=== PATIENT | male | born 1955 | race Caucasian/White ===

== ENCOUNTER 2019-09-19 12:53 | Emergency (ER) | payer MEDICARE, OTHER ==
[~2019-09-19] VITALS: Ht 180.3 cm; Wt 181.4 kg
[2019-09-19 13:24] VITALS: BP_SYST 148; BP_SYST 159; BP_DIAS 54; BP_DIAS 92
[2019-09-19 14:02] LABS: BASOPHIL % 0.4 % (0.0-0.2); EOSINOPHIL # 0.1 10^3/uL (0.0-0.2); EOSINOPHIL % 1.9 % (0.0-5.0); LYMPHOCYTES # 1.4 10^3/uL (1.0-4.8); LYMPHOCYTES % 26.8 % (24.0-44.0); MEAN CORP HGB 29.7 pg (26-34); MONOCYTES # 0.5 10^3/uL (0.3-0.8); MONOCYTES % 9.6 % (5.0-12.0); NEUTROPHIL # 3.3 10^3/uL (1.8-7.7); NEUTROPHILS % 61.1 % (41.0-85.0); RED CELL DISTRIBUTION WIDTH 15.3 % (11.5-14.5)
--- NOTE | 2019-09-19 14:04 | ER.PDOC ---
General Chief Complaint: Requesting Medical Care Stated Complaint: BLEEDING Time seen by MD: 13:45 Source: patient, family Exam Limitations: no limitations History of Present Illness Initial Comments Pt had just went to the bathroom, and he noticed bleeding coming from his scrotum posteriorly. sat down on it, and it stopped bleeding after about 30 minutes. No longer bleeding. Had a similar episode that occurred on . NO light-headedness, no syncope.. Timing/Duration: this morning Severity/Quality: mild, moderate Location: scrotal Sexual History: Non-contributory Prior symptoms/Treatment: Similar symptoms previous Allergies: Coded Allergies: pramipexole (Verified Allergy, Intermediate, LLE EDEMA, 09/19/19) sulfamethoxazole (Verified Allergy, Intermediate, RASH / HIVES, 09/19/19) trimethoprim (Verified Allergy, Intermediate, RASH / HIVES, 09/19/19) Past Medical History Medical History: coronary artery disease, congestive heart failure, diabetes, high cholesterol, hypertension Social History Alcohol Use: rarely Drug Use: none Review of Systems Constitutional: no symptoms reported Respiratory: no symptoms reported Cardiovascular: no symptoms reported Genitourinary: see HPI; denies burning, denies discharge, denies dysuria, denies frequency, denies hematuria Musculoskeletal: no symptoms reported Skin: no symptoms reported All Other Systems: Reviewed and Negative Physical Exam General Appearance: No Apparent Distress, WD/WN Abdomen: Non Tender Male Genitals: Other (multiple small varicosities, no active bleeding. Bleeding site not definitively identifiable.) Extremities: Normal Range of Motion Neurologic/Psychiatric: No Motor/Sensory Deficits, Alert, Oriented x 3 Skin: Normal Color, Warm/Dry Results/Orders Results/Orders Orders - ROSAMARIA DIEHL DO Cbc With Auto Diff (09/19/19 13:50) Vital Signs Date Time Temp Pulse Resp B/P (MAP) Pulse Ox O2 Delivery O2 Flow Rate FiO2 09/19/19 13:24 98.5 57 22 09/19/19 13:24 159/92 (114) 09/19/19 13:08 97.7 58 20 94 Laboratory Tests Test 09/19/19 13:57 White Blood Count 5.3 10^3/uL (4.5-11.0) Red Blood Count 4.44 10^6/uL (4.50-5.90) L Hemoglobin 13.2 g/dL (13.9-16.3) L Hematocrit 40.6 % (37.0-53.0) Mean Corpuscular Volume 91.4 fL (78-100) Mean Corpuscular Hemoglobin 29.7 pg (26-34) Mean Corpuscular Hemoglobin Concent 32.5 g/dL (33-37) L Red Cell Distribution Width 15.3 % (11.5-14.5) H Platelet Count 199 10^3/uL (150-400) Mean Platelet Volume 9.6 fL (7.8-11.0) Neutrophils (%) (Auto) 61.1 % (41.0-85.0) Lymphocytes (%) (Auto) 26.8 % (24.0-44.0) Monocytes (%) (Auto) 9.6 % (5.0-12.0) Neutrophils # (Auto) 3.3 10^3/uL (1.8-7.7) Lymphocytes # (Auto) 1.4 10^3/uL (1.0-4.8) Monocytes # (Auto) 0.5 10^3/uL (0.3-0.8) Absolute Immature Granulocyte (auto 0.01 10^3 u/L (0-2) Absolute Eosinophils (auto) 0.1 10^3/uL (0.0-0.2) Immature Granulocytes % 0.20 % (0.00-0.50) Eosinophils % 1.9 % (0.0-5.0) Basophils % 0.4 % (0.0-0.2) H Basophils # 0.0 10^3/uL (0.0-0.1) Progress Progress Pt with Hgb 13.2, just below normal, but no hypotension, tachycardia, or active bleeding. Area of bleeding should be easily managed with pressure should it re- occur. Pt will be discharged home, will f/u with his recordist as he may benefit from venous ablation. Pt feels comfortable going home, does not want intervention at this time as there is no active bleeding. As there is no definite single point of bleeding, I feel this is appropriate. Departure Time of Disposition: 14:14 Disposition: 01 HOME, SELF-CARE Impression: Primary Impression: Varicose vein of scrotum Condition: Stable Referrals: PCP,UNKNOWN (PCP) PRIMARY CARE PROVIDER Duration or Time Spent with Pa: 15 ROSAMARIA DIEHL DO Sep 19, 2019 14:04
[2019-09-19 14:46] VITALS: BP 144/86
== END 2019-09-19 14:45 | disposition home or self-care (01) ==
LOC: ER 12:53
DX: I86.1 Scrotal varices (principal); I25.10 Atherosclerotic heart disease of native coronary artery without angina pectoris; I11.0 Hypertensive heart disease with heart failure; I50.9 Heart failure, unspecified; E11.9 Type 2 diabetes mellitus without complications; E78.00 Pure hypercholesterolemia, unspecified; Z88.1 Allergy status to other antibiotic agents; Z88.2 Allergy status to sulfonamides
CPT/HCPCS: 36415; 85025; 99282